=== PATIENT | male | born 1950 | race Caucasian/White ===

== ENCOUNTER → 2016-09-23 | Outpatient (CLI) | payer OTHER ==
--- NOTE | 2016-09-23 08:54 | DIAGNOSTIC IMAGING REPORT ---
CHEST CT WITHOUT CONTRAST CT DOSE: 858.19 mGycm HISTORY: R91.8 Multiple lung nodules on [id number] TECHNIQUE: Multiaxial CT images of the chest were performed without contrast. COMPARISON: Outside hospital chest CT 02/02/2016. FINDINGS: No pneumothorax or pleural effusions. The central airways are patent. Stable 3 nodule within the left upper lobe on image 117. A few bibasilar linear densities favor subsegmental atelectasis are scarring. Stable 6 mm subpleural nodule within the right middle lobe on image 146. Stable 4 mm subpleural nodule within the right upper lobe on image 154. Stable 4 mm nodular density abutting the major fissure on image 159 and stable 5 mm nodule within the right lower lobe abutting the major fissure on image 170. No new pulmonary nodules identified. An 8 mm fatty nodule within the right thyroid lobe. No mediastinal or hilar lymphadenopathy. The heart is normal in size. The unenhanced liver, spleen, adrenal glands are unremarkable. There are few punctate gallstones. Bilateral perinephric edema remains unchanged. IMPRESSION: 1. Stable bilateral pulmonary nodules with the largest within the right middle lobe measuring 6 mm. Please refer to the chart below for recommended follow-up. 2. Cholelithiasis. 3. Additional findings as described above. Please refer to below summary of Fleischner criteria recommendations for follow-up of incidental CT nodules (Avani Ko, Guidelines for management of small pulmonary nodules detected on CT scans: A statement from the Fleischner Society, Radiology 237: [phone].) SOLID NODULES Solitary nodule size: <6 mm * low risk patients: no follow-up needed * high risk patients: optional CT at 12 months Solitary nodule size: 6-8 mm * low risk patients: follow-up at 6-12 months, then consider further follow-up at 18-24 months * high risk patients: initial follow-up CT at 6-12 months and then at 18-24 months if no change Solitary nodule size: >8 mm * either low or high risk patients - consider follow-up CT at 3 months, and/or CT-PET, and/or biopsy Multiple nodules size: <6 mm * low risk patients: no routine follow-up * high risk patients: optional CT at 12 months Multiple nodules size: 6-8 mm * low risk patients: follow-up at 3-6 months, then consider further follow-up at 18-24 months * high risk patients: follow-up at 3-6 months, then at 18-24 months if no change Multiple nodules size: >8 mm * low risk patients: follow-up at 3-6 months, then consider further follow-up at 18-24 months * high risk patients: follow-up at 3-6 months, then at 18-24 months if no change Note: newly detected indeterminate nodule in persons 35 years of age or older. * Low risk patients: minimal or absent history of smoking and/or other known risk factors * high risk patients: history of smoking or of other known risk factors (e.g. first degree relative with lung cancer, or exposure to asbestos, radon, uranium) * if a nodule up to 8 mm is partly solid or is ground glass further follow-up is required after 24 months to exclude possible slow growing adenocarcinoma (ANDREW) SUBSOLID NODULES Solitary pure ground-glass nodule * nodule size <6 mm - no CT follow-up required * nodule size >=6 mm - follow-up CT at 6-12 months, then every 2 years until 5 years Solitary part-solid nodule * nodule size <6 mm - no CT follow-up required * nodule size >=6 mm - follow-up CT at 3-6 months. If unchanged, and solid component remains <6 mm, then annual follow-up for 5 years Multiple subsolid nodules * nodule size <6 mm - follow-up CT at 3-6 months, consider further follow-up at 2 and 4 years if stable * nodule size >=6 mm - follow-up CT at 3-6 months, subsequent management based on the most suspicious nodule(s) Electronically signed by: Marcelino Obrien M.D. 09/23/2016 8:53 AM Dictated Date/Time: 09/23/2016 8:47 AM
== END | disposition home or self-care (01) ==
LOC: C.CTS 06:47
PROVIDERS: ATTEND Internal Medicine Pulmonary Disease
DX: R91.8 Other nonspecific abnormal finding of lung field (principal)